=== PATIENT | male | born 1945 | race Two or more races ===

== ENCOUNTER 2018-03-06 06:00 | Day surgery (SDC) | payer MEDICARE, MEDICAID ==
[2018-03-06] MEDS ORDERED: PROPOFOL 40 ML (07:57)
[2018-03-06] MEDS ORDERED: PROPOFOL 20 ML (09:16)
== END 2018-03-06 10:51 | disposition home or self-care (01) ==
LOC: GIL 06:00
DX: D12.2 Benign neoplasm of ascending colon (principal); D12.4 Benign neoplasm of descending colon; D12.6 Benign neoplasm of colon, unspecified; R19.4 Change in bowel habit; E11.9 Type 2 diabetes mellitus without complications; I10 Essential (primary) hypertension; E66.9 Obesity, unspecified; Z68.33 Body mass index [BMI] 33.0-33.9, adult
CPT/HCPCS: 45380; 82962; 88305